=== PATIENT | male | born 1960 | race Caucasian/White ===

== ENCOUNTER 2023-04-22 14:11 | Emergency (ER) | payer OTHER, SELFPAY ==
--- NOTE | ~2023-04-22 | CT_ITS ---
EXAMINATION: CT ABDOMEN AND PELVIS WITH BOWEL CONTRAST ONLY. CLINICAL INFORMATION: Diffuse abdominal pain. COMPARISON: Noncontrast CT of the abdomen and pelvis done earlier today. TECHNIQUE: Multidetector volumetric imaging was performed from the superior aspect of the liver through the pubic symphysis. Sagittal and coronal reformatted images were obtained on the technologist's workstation. Positive contrast is identified within the large bowel and distal small bowel loops. This CT examination was performed using dose optimization techniques as appropriate, variously including the following: *Automated exposure control *Adjustment of mA and/or kV according to patient size (this includes techniques or standardized protocols for targeted exams where dose is matched to indication/reason for exam; i.e. extremities or head) *Use of iterative reconstruction technique DLP: 685 mGy-cm FINDINGS: LUNG BASES: Presumed pleural parenchymal scar at right lung base. LIVER, GALLBLADDER, AND BILIARY TREE: No focal liver lesion on this nonenhanced study. The gallbladder and biliary tree appear unremarkable. PANCREAS: Unremarkable. SPLEEN: Unremarkable. ADRENAL GLANDS: Unremarkable. KIDNEYS AND URETERS: The kidneys are normal in size, shape, and attenuation. No hydronephrosis, hydroureter, or calculi seen. No perinephric stranding. BLADDER: Unremarkable. GASTROINTESTINAL TRACT: Postsurgical changes are noted within the distal small bowel loops. Colonic diverticulosis involving the large bowel without any CT features of superimposed acute diverticulitis. The stomach is relatively decompressed. ABDOMINAL WALL: No significant hernia is appreciated. LYMPH NODES: Normal. VASCULAR: Unremarkable. PELVIC VISCERA: Unremarkable. OSSEOUS STRUCTURES: Moderate diffuse osteopenia and multilevel degenerative spondylosis. CT/CT abdomen pelvis wo IV con IMPRESSION: No significant abnormality. No significant change since the CT scan of the abdomen and pelvis done earlier today without bowel contrast. Fleischner guidelines were followed.
--- NOTE | ~2023-04-22 | CT_ITS ---
EXAMINATION: CT ABDOMEN AND PELVIS WITHOUT CONTRAST CLINICAL INFORMATION: 63-year-old male with abdominal pain COMPARISON: None available. TECHNIQUE: Multidetector volumetric imaging was performed from the superior aspect of the liver through the pubic symphysis. Sagittal and coronal reformatted images were obtained on the technologist's workstation. This CT examination was performed using dose optimization techniques as appropriate, variously including the following: *Automated exposure control *Adjustment of mA and/or kV according to patient size (this includes techniques or standardized protocols for targeted exams where dose is matched to indication/reason for exam; i.e. extremities or head) *Use of iterative reconstruction technique DLP: 698 mGy-cm FINDINGS: LUNG BASES: There is atelectasis in the right lung base. LIVER, GALLBLADDER, AND BILIARY TREE: Liver is of low attenuation, enlarged with nodular contour due to hepatic cirrhosis but without evidence of portal hypertension.. The gallbladder is unremarkable with no evidence of radiopaque gallstones, gallbladder wall thickening, or obvious pericholecystic inflammatory changes. PANCREAS: Unremarkable. SPLEEN: Unremarkable. ADRENAL GLANDS: Unremarkable. KIDNEYS AND URETERS: The kidneys are normal in size, shape, and attenuation. No hydronephrosis, hydroureter, or calculi seen. No perinephric stranding. BLADDER: Urinary bladder is only partially distended almost completely decompressed. GASTROINTESTINAL TRACT: Patient is status post bowel resection. Was functioning anastomosis. There is no evidence of bowel obstruction. Small bowel loops are not dilated. Anastomosis in the right side of the colon is mildly distended by fluid and gas. Anastomosis at the rectosigmoid area is unremarkable. There are changes of diverticulosis without diverticulitis. Appendix is not seen. ABDOMINAL WALL: There are postsurgical changes on the anterior abdominal wall without hernias seen. LYMPH NODES: Normal. VASCULAR: Unremarkable. PELVIC VISCERA: Unremarkable. OSSEOUS STRUCTURES: Unremarkable. CT/CT abdomen pelvis wo IV con IMPRESSION: 1. No evidence of bowel obstruction. Status post bowel resection. 2. Hepatic cirrhosis without portal hypertension. 3. Atelectasis in the right lung base. 4. Diverticulosis without diverticulitis. Fleischner guidelines were followed.
[2023-04-22 14:15] VITALS: BP 142/91; PULSE 80; RESP 16; TEMP 36.9; O2SAT 98; BMI 36.5
--- NOTE | 2023-04-22 14:22 | ED_ITS ---
HPI - General Adult General Chief complaint: Abdominal Pain Stated complaint: abd pain/ back pain Time Seen by Provider: 04/22/23 14:50 Source: patient, family (Son) and aerial photograph interpreter Mode of arrival: ambulatory History of Present Illness HPI narrative: 63-year-old male with diabetes, hypertension, abdominal surgical history presents with onset of waxing and waning abdominal discomfort this started in right upper quadrant since yesterday has been associated with nausea, vomiting, chills and subjective fevers. He denies any dysuria. Patient states he is been able to continue passing gas and having diarrhea. Related Data Allergies Allergy/AdvReac Type Severity Reaction Status Date / Time Iodinated Contrast Media Allergy Anaphylaxis Verified 04/22/23 14:21 [IV Contrast Dye] Penicillins Allergy Unknown Verified 04/22/23 14:18 Review of Systems Review of Systems: Pertinent positives and negatives as stated in HPI [facility] Past Medical History Source: nursing notes reviewed Medical History Diabetes Hx of renal calculi Hypertension Social History Social History Alcohol intake: never Smoked in Last 30 Days: Yes Use of substances other than those prescribed or required for medical reasons: No Advance Directives: No Advance Directives Information Provided: Yes Physical Exam ED Vital Signs: Vital Signs - 24 hr 04/22/23 14:15 04/22/23 15:02 04/22/23 18:26 Temperature 98.5 F 98.2 F 98 F Pulse Rate 80 73 71 Respiratory Rate 16 18 16 Blood Pressure 142/91 H 149/82 H 158/79 H Pulse Oximetry 98 97 98 Oxygen Delivery Method Room Air Room Air Room Air BMI result Body Mass Index 36.5 VITAL SIGNS: Reviewed. GENERAL: Elevated BMI, Well developed, well nourished, in no acute distress. HEAD: Normocephalic/atraumatic EYES: PERRLA, EOMI EARS: Ext canals without abnormality NOSE: Nares patent bilateral OROPHARYNX: no oral lesions noted, posterior pharynx clear NECK: Supple, no adenopathy LUNGS: Normal breath sounds. No adventitious sounds or accessory muscle use. SpO2<98> CARDIOVASCULAR: Regular rate and rhythm without noted murmurs, no JVD or lower extremity edema. ABDOMEN: Soft, diffusely tender on palpation, non-distended with hypoactive bowel sounds, extensive abdominal scars consistent with surgical history. MUSCULOSKELETAL: No tenderness, deformities, or effusions noted on gross inspection. EXTREMITIES: No cyanosis, clubbing or edema. SKIN: Inspection of the skin reveals no rashes NEUROLOGIC: Alert and oriented x 4. Strength and sensation to light touch were grossly intact x 4. Course Course Course Narrative: RME: 63 yold male with pmh of intestinal surgery in 2014 presents to the ED for abdominal pain especially Right upper and lower quadrant. Patient states also mutlipe bouts of diarrhea with no blood. patient has anaphylactic reaction to IV contrast. labs and dry abdominal CT scan ordered Medications Administered Discontinued Medications Generic Name Dose Route Start Last Admin Trade Name Freq PRN Reason Stop Dose Admin Diatrizoate Meglum/Diatrizoate Sod 30 ml 04/22/23 18:41 04/22/23 18:41 Diatrizoate Meglumine, Sodium 30 Ml Solution PO 04/22/23 18:42 30 ml ONCE ONE Administration Fentanyl 25 mcg 04/22/23 15:33 04/22/23 15:49 Fentanyl Citrate/Pf 100 Mcg/2 Ml Vial IVPUSH 04/22/23 15:34 25 mcg ONCE ONE Administration Protocol Sodium Chloride 1,000 mls @ 999 mls/hr 04/22/23 15:45 04/22/23 19:30 Ns IV 04/22/23 16:45 Infused .Q1H1M DARRIAN Infusion Cefepime HCl 1 gm/ Sodium 50 mls @ 100 mls/hr 04/22/23 15:33 04/22/23 16:40 Chloride IV 04/22/23 16:02 Infused ONCE ONE Infusion Ketorolac Tromethamine 15 mg 04/22/23 18:37 04/22/23 18:42 Ketorolac Tromethamine 30 Mg/Ml Vial IVPUSH 04/22/23 18:38 15 mg ONCE ONE Administration Medical Decision Making Medical Decision Making [facility] Narrative: 1535: 63-year-old male with history and clinical presentation, DDX: Perforation, SBO, diverticulitis, appendicitis, incarcerated hernia. I quickly reviewed lab work and a with patient is afebrile there is a leukocytosis and lactic acid/blood cultures, IV fluids, as well as antibiotics have been ordered. I reviewed all investigations and hematologic indices are significant for leukocytosis without a left shift, no anemia or thrombocytopenia. Chemistry indices are without electrolyte or liver enzyme abnormalities, there is no JAY, lactic acid is within normal limits. Urinalysis is negative for UTI or hematuria and viral testing is negative. Patient had no diarrhea while here in the emergency room so further investigations on possible GI infection are not possible at this time. Initial CT scan was negative for any evidence to suggest a diverticulitis or renal colic. I then discussed the case with General surgery consultation who recommended oral contrast since patient is allergic to IV contrast dye, on evaluation of that CT scan there are again no acute findings and contrast is noted to be within the rectum. Otherwise my interpretation is in agreement with radiology's impression. I communicated these findings with the general assistant professor of surgery. The the leukocytosis is likely stress in nature. 2020: On re-evaluation patient reports that his pain is much better and he is tolerating oral intake. Patient was given all results, findings and plan and understands that he will need to follow-up with his primary care doctor in the morning. Differential Diagnosis Differential Diagnoses: The differential diagnosis associated with the presentation includes Please see the discussion above Admission/Observation Consideration of admission/observation: Escalation of care including adm ission/observation considered Please see the discussion above Lab Data MDM Lab Attestation statement: I reviewed the patient's lab results. Please see the discussion above 04/22/23 14:31 04/22/23 14:31 Labs: Lab Results 04/22/23 04/22/23 04/22/23 Range/Units 14:31 14:31 14:31 WBC 17.4 H (4.8-10.8) X10*3/uL RBC 5.05 (4.60-5.80) X10*6/uL Hgb 15.4 (14.0-18.0) g/dl Hct 45.3 (42.0-52.0) % MCV 89.7 (80.0-98.0) fL MCH 30.5 (27.0-33.0) pg MCHC 34.0 (31.0-36.0) g/dl RDW 14.5 (11.0-16.0) % Plt Count 325 (160-400) X10*3/uL MPV 10.9 (9.4-12.4) fL Immature Gran % (Auto) Cancelled Neut % (Auto) Cancelled Lymph % (Auto) Cancelled [place] % (Auto) Cancelled Eos % (Auto) Cancelled Baso % (Auto) Cancelled Lymph # (Auto) Cancelled [place] # (Auto) Cancelled Eos # (Auto) Cancelled Baso # (Auto) Cancelled Abs Immat Gran (auto) Cancelled Absolute Neuts (auto) Cancelled Absolute Nucleated RBC 0.000 (0.0-0.012) X10*3/uL Nucleated RBC % (auto) 0.0 (0.0-0.2) /100WBC Neutrophils % (Manual) 63 (45-73) % Band Neutrophils % 0 L (3-5) % Lymphocytes % (Manual) 27 (20-40) % Atypical Lymphs % (Man) 1 (0-6) % Monocytes % (Manual) 5 (2-11) % Eosinophils % (Manual) 3 (0-4) % Basophils % (Manual) 1 (0-2) % Abs Neuts (Manual) 11.0 H (2.0-8.3) X10*3/uL Lymphocytes # (Manual) 4.7 (1.2-4.9) X10*3/uL Atyp Lymphs # (Manual) 0.2 x10*3/uL Monocytes # (Manual) 0.9 (0.1-1.2) X10*3/uL Eosinophils # (Manual) 0.5 H (0.0-0.4) X10*3/uL Basophils # (Manual) 0.2 (0.0-0.2) X10*3/uL Smudge Cells PRESENT Toxic Vacuolation PRESENT Platelet Estimate NORMAL (NORMAL) Giant Platelets PRESENT Plt Morphology Comment NOTED RBC Morphology NOTED Dennis Cells 2+ (3-5) /OIF Sodium 138 (135-145) mmol/L Potassium 3.8 (3.3-5.1) mmol/L Chloride 107 (96-108) mmol/L Carbon Dioxide 24 (22-29) mmol/L Anion Gap 11 L (12-20) BUN 9 (9-16) mg/dL Creatinine 1.12 (0.5-1.4) mg/dL Estim Creat Clear Calc 82.8 Estimated GFR > 60 Random Glucose 146 H (60-115) mg/dL Lactic Acid (0.5-2.0) mmol/L Calcium 9.6 (8.4-10.2) mg/dL Total Bilirubin 0.4 (0.0-1.0) mg/dL AST 16 (5-37) U/L ALT 17 (0-40) U/L Alkaline Phosphatase 80 (39-117) U/L Total Protein 7.6 (6.5-8.0) g/dL Albumin 4.0 (3.5-5.0) g/dL Urine Color Urine Appearance Urine pH (5.0-9.0) Ur Specific [place] (1.005-1.025) Urine Protein (Neg-Trace) mg/dL Urine Glucose (UA) (Negative) mg/dL Urine Ketones (Negative) mg/dL Urine Blood (Negative) Urine Nitrite (Negative) Ur Leukocyte Esterase (Negative) COVID-19 (CANDACE) (Negative) COVID-19 Clin Com Influenza Type A (MANNY) Negative (Negative) Influenza Type B (MANNY) Negative (Negative) Influenza A & B Note See Note 04/22/23 04/22/23 04/22/23 Range/Units 14:31 14:41 15:46 WBC (4.8-10.8) X10*3/uL RBC (4.60-5.80) X10*6/uL Hgb (14.0-18.0) g/dl Hct (42.0-52.0) % MCV (80.0-98.0) fL MCH (27.0-33.0) pg MCHC (31.0-36.0) g/dl RDW (11.0-16.0) % Plt Count (160-400) X10*3/uL MPV (9.4-12.4) fL Immature Gran % (Auto) Neut % (Auto) Lymph % (Auto) [place] % (Auto) Eos % (Auto) Baso % (Auto) Lymph # (Auto) [place] # (Auto) Eos # (Auto) Baso # (Auto) Abs Immat Gran (auto) Absolute Neuts (auto) Absolute Nucleated RBC (0.0-0.012) X10*3/uL Nucleated RBC % (auto) (0.0-0.2) /100WBC Neutrophils % (Manual) (45-73) % Band Neutrophils % (3-5) % Lymphocytes % (Manual) (20-40) % Atypical Lymphs % (Man) (0-6) % Monocytes % (Manual) (2-11) % Eosinophils % (Manual) (0-4) % Basophils % (Manual) (0-2) % Abs Neuts (Manual) (2.0-8.3) X10*3/uL Lymphocytes # (Manual) (1.2-4.9) X10*3/uL Atyp Lymphs # (Manual) x10*3/uL Monocytes # (Manual) (0.1-1.2) X10*3/uL Eosinophils # (Manual) (0.0-0.4) X10*3/uL Basophils # (Manual) (0.0-0.2) X10*3/uL Smudge Cells Toxic Vacuolation Platelet Estimate (NORMAL) Giant Platelets Plt Morphology Comment RBC Morphology Dennis Cells /OIF Sodium (135-145) mmol/L Potassium (3.3-5.1) mmol/L Chloride (96-108) mmol/L Carbon Dioxide (22-29) mmol/L Anion Gap (12-20) BUN (9-16) mg/dL Creatinine (0.5-1.4) mg/dL Estim Creat Clear Calc Estimated GFR Random Glucose (60-115) mg/dL Lactic Acid 1.3 (0.5-2.0) mmol/L Calcium (8.4-10.2) mg/dL Total Bilirubin (0.0-1.0) mg/dL AST (5-37) U/L ALT (0-40) U/L Alkaline Phosphatase (39-117) U/L Total Protein (6.5-8.0) g/dL Albumin (3.5-5.0) g/dL Urine Color Yellow Urine Appearance Clear Urine pH 5.5 (5.0-9.0) Ur Specific [place] >= 1.030 H (1.005-1.025) Urine Protein Negative (Neg-Trace) mg/dL Urine Glucose (UA) Negative (Negative) mg/dL Urine Ketones Trace (Negative) mg/dL Urine Blood Negative (Negative) Urine Nitrite Negative (Negative) Ur Leukocyte Esterase Negative (Negative) COVID-19 (CANDACE) Negative (Negative) COVID-19 Clin Com See Note Influenza Type A (MANNY) (Negative) Influenza Type B (MANNY) (Negative) Influenza A & B Note Radiology Impression Discussion of test interpretation with radiology: I have reviewed the radiologist's reading. Radiologist Impression: Please see the discussion above Chronic Conditions Patient?s care impacted by: Diabetes Critical Care Time Critical Care Time Critical Care Time: Yes Total Critical Care Time: 30 Attestation: I personally attest to this time spent taking care of the patient. Discharge Plan Discharge Clinical Impression: Abdominal discomfort, Gastroenteritis, Dehydration Patient Disposition: Home, Self-Care Instructions: Dehydration (ED), Gastroenteritis (ED), Nutrition Tips for Relief of Diarrhea (ED) Additional Instructions: 1. Reanudar todos los medicamentos caseros seg?n lo recetado. 2. Aumente la cantidad de agua que gagan y shania un seguimiento con crisostomo proveedor de atenci?n primaria llamando al consultorio por la ma?debby. Regrese a la josefa de emergencias si los s?ntomas empeoran. 1. Resume all home medications as prescribed. 2. Increase amount of water that you drink and follow-up with your primary care provider by calling the office in the morning. Return to the ER for any worsening symptoms. Print Language: Azeri
[2023-04-22 14:45] LABS: Hematocrit 45.3 % (42.0-52.0); Hemoglobin 15.4 g/dl (14.0-18.0); Mean Corpuscular Hemoglobin 30.5 pg (27.0-33.0); Mean Corpuscular Volume 89.7 fL (80.0-98.0); Mean Platelet Volume 10.9 fL (9.4-12.4); Platelet Count 325 X10*3/uL (160-400); Red Blood Count 5.05 X10*6/uL (4.60-5.80); Red Cell Distribution Width 14.5 % (11.0-16.0)
[2023-04-22 14:49] LABS: Appearance Urine Clear; Color Urine Yellow; Glucose Urine UA Negative (Negative); Leukocyte Esterase Urine Negative (Negative); Nitrite Urine Negative (Negative); PH 5.5 (5.0-9.0); Specific Gravity - Urine >= 1.030 (1.005-1.025); Urine Blood Negative (Negative); Urine Ketones Trace mg/dL (Negative); Urine Protein Negative (Neg-Trace)
[2023-04-22 14:54] LABS: Alanine Aminotransferase 17 U/L (0-40); Alkaline Phosphatase 80 U/L (39-117); Anion Gap 11 (12-20); Aspartate Amino Transferase 16 U/L (5-37); Bilirubin Total 0.4 mg/dL (0.0-1.0); Blood Urea Nitrogen 9 mg/dL (9-16); Calcium 9.6 mg/dL (8.4-10.2); Carbon Dioxide 24 mmol/L (22-29); Chloride 107 mmol/L (96-108); Creatinine Clr Calc Pharmacy 82.8; Estimated Glomerular Filt Rate > 60; Glucose Random 146 mg/dL (60-115); Potassium 3.8 mmol/L (3.3-5.1); Sodium 138 mmol/L (135-145); Total Protein 7.6 g/dL (6.5-8.0)
[2023-04-22 14:55] LABS: COVID-19 Test Negative (Negative); IDNOW Serial# BCCEAD1C
[2023-04-22 14:58] LABS: WBC ABN SCTR FOR CBC 1; White Blood Count 17.4 X10*3/uL (4.8-10.8)
[2023-04-22 15:02] VITALS: BP 149/82; PULSE 73; RESP 18; TEMP 36.8; O2SAT 97
--- NOTE | 2023-04-22 15:07 | PC.NURSE ---
pt a&ox3, vss, pt verbalizing 8/10 abdominal pain in the RLQ that radiates to flanks bilaterally. pain started yesterday. pt states he has fever/n/v/chills/dysuria. pt verbalizes that he has hx of kidney stones. pt currently being transferred to CT. will reassess pt when he returns.
[2023-04-22 15:09] LABS: Atypical Lymph Absolute Manual 0.2 x10*3/uL; Atypical Lymphs Percent Manual 1 % (0-6); Band Neutrophils Percent 0 % (3-5); Basophils Abs Manual 0.2 X10*3/uL (0.0-0.2); Basophils Percent Manual 1 % (0-2); Eosinophils Absolute Manual 0.5 X10*3/uL (0.0-0.4); Eosinophils Percent Manual 3 % (0-4); IDNOW Serial# 08D9AD1C; Influenza A Negative (Negative); Influenza B2 Negative (Negative); Lymphocytes Absolute Manual 4.7 X10*3/uL (1.2-4.9); Lymphocytes Percent Manual 27 % (20-40); Monocytes Absolute Manual 0.9 X10*3/uL (0.1-1.2); Monocytes Percent Manual 5 % (2-11); Neutrophils Percent Manual 63 % (45-73)
[2023-04-22 15:13] LABS: Burr Cells 2+ (3-5) /OIF; Giant Platelet PRESENT; Platelet Estimate NORMAL (NORMAL); Platelet Morphology Comment NOTED; RBC Morphology NOTED
[2023-04-22 15:14] LABS: Smudge Cells PRESENT; Toxic Vacuolation PRESENT
[2023-04-22] MEDS: 0.9 % Sodium Chloride 1,000 ML 999 ML IV (15:47)
[2023-04-22] MEDS: fentaNYL citrate/PF 100 MCG/2 ML VIAL 25 MCG IVPUSH (15:49)
[2023-04-22] MEDS: cefEPime HCl 1 GM in 0.9 % Sodium Chloride 50 ML IV (15:50)
--- NOTE | 2023-04-22 15:59 | PC.NURSE ---
20gIV placed in the right AC medications and IVF hung and administered per provider order. call ballesteros placed within reach.
[2023-04-22 16:09] LABS: Lactic Acid 1.3 mmol/L (0.5-2.0)
--- NOTE | 2023-04-22 16:29 | PC.NURSE ---
IVF and medications currently still hung and running per provider order. pt stating that pain level remains the same post medication administration. will notify provider.
[2023-04-22 18:26] VITALS: BP 158/79; PULSE 71; RESP 16; TEMP 36.6; O2SAT 98
[2023-04-22] MEDS: Diatrizoate Meglumine, Sodium 30 ML SOLUTION PO (18:41)
[2023-04-22] MEDS: Ketorolac Tromethamine 30 MG/ML VIAL 15 MG IVPUSH (18:42)
--- NOTE | 2023-04-22 18:44 | PC.NURSE ---
pt medicated per order
[2023-04-22 20:28] VITALS: BP 169/91; PULSE 82; RESP 17; O2SAT 95
== END 2023-04-22 20:31 | disposition home or self-care (01) ==
PROVIDERS: Physician Assistant; Emergency Provider Student in an Organized Health Care Education/Training Program
DX: R10.9 Unspecified abdominal pain (principal); K52.9 Noninfective gastroenteritis and colitis, unspecified; E86.0 Dehydration; E11.9 Type 2 diabetes mellitus without complications; I10 Essential (primary) hypertension; E66.9 Obesity, unspecified; Z68.36 Body mass index [BMI] 36.0-36.9, adult
CPT/HCPCS: 36415; 74176; 80053; 81003; 83605; 85007; 85027; 87040; 87502; 87635; 96361; 96365; 96375; 99284; 99285; J0692; J1885; J3010

== ENCOUNTER 2023-07-30 15:50 | Emergency (ER) | payer OTHER, SELFPAY ==
--- NOTE | ~2023-07-30 | XR_ITS ---
EXAMINATION: XR FOOT, LEFT CLINICAL INFORMATION: Left foot pain COMPARISON: None available. TECHNIQUE: AP, lateral, and oblique views of the left foot. FINDINGS: The bones are normal. No fracture. Alignment is anatomic. Joint spaces are maintained. There is a small retrocalcaneal enthesophyte. There is a mild dorsal distal foot soft tissue swelling. XR/XR foot LT min 3V IMPRESSION: Small retrocalcaneal enthesophyte. No visible acute fracture or dislocation seen. There is mild dorsal distal foot soft tissue swelling
[2023-07-30 16:52] VITALS: BP 138/86; PULSE 90; RESP 18; TEMP 36.3; O2SAT 98; BMI 34.2
--- NOTE | 2023-07-30 16:57 | ED.GENADULT ---
HPI - General Adult General Chief complaint: Extremity Injury, Lower Stated complaint: L foot injury Time Seen by Provider: 07/30/23 17:36 Source: patient and adult education teacher Mode of arrival: ambulatory Limitations: language barrier History of Present Illness HPI narrative: Patient is a 63 year old assigned male at with a history of kidney stones, diabetes, and HTN presenting to the emergency department today with left foot pain. Patient states that over the last 2 days he has had left foot pain, swelling, and redness. Patient denies any dizziness, lightheadedness, abdominal pain, nausea, vomiting, fever, chills, blurry vision, double vision, loss of vision, chest pain, difficulty breathing, shortness of breath, back pain, night sweats, pain with urination, increased urinary frequency, increased urinary urgency, blood in his urine or stool, syncope or a near syncopal episode, recent trauma or falls, bowel incontinence, bladder incontinence, bowel retention, bladder retention, or any other complaints at this time. Onset (ago): day(s) (2) Location: left (foot) Radiation: non-radiation Severity: mild Severity scale (1-10): 3 Quality: aching and dull Pain Consistency: constant Relieving factors: none Exacerbating factors: none Associated symptoms: denies other symptoms Treatments prior to arrival: none Related Data Previous Rx's Medication Instructions Recorded naproxen 500 mg tablet 500 mg PO BID 7 days #14 tabs 07/30/23 prednisone 20 mg tablet 20 mg PO DAILY 7 days #7 tabs 07/30/23 Allergies Allergy/AdvReac Type Severity Reaction Status Date / Time Iodinated Contrast Media Allergy Anaphylaxis Verified 07/30/23 16:48 [IV Contrast Dye] Penicillins Allergy Unknown Verified 07/30/23 16:48 Review of Systems Constitutional: Constitutional: Reports no additional constitutional complaints, Denies chills, Denies fever(s) and Denies night sweats Eyes: Eyes: Reports no additional eye complaints, Denies blurry vision, Denies change in vision, Denies diplopia, Denies eye discharge, Denies loss of vision and Denies eye pain ENT: Denies dizziness Cardiovascular: Cardiovascular: Reports no additional cardiovascular complaints, Denies chest pain, Denies lightheadedness, Denies Loss of Consciousness and Denies dyspnea Respiratory: Respiratory: Reports no additional respiratory complaints and Denies dyspnea Gastrointestinal: Gastrointestinal: Reports no additional gastrointestinal complaints, Denies abdominal pain, Denies melena, Denies hematochezia, Denies change in bowel habits and Denies change in stool character Genitourinary: Genitourinary: Reports no additional male genitourinary complaints, Denies hematuria, Denies oliguria, Denies difficulty urinating, Denies dysuria, Denies urinary frequency, Denies urinary hesitancy, Denies urinary incontinence and Denies urinary urgency Musculoskeletal: Musculoskeletal: Reports no additional musculoskeletal complaints, Denies numbness and Denies tingling Comments: left foot pain, redness, and swelling Neurologic: Denies dizziness, Denies loss of vision, Denies numbness and Denies tingling Psychiatric: Psychiatric: Reports no additional psychiatric complaints Endocrine: Endocrine: Reports no additional endocrine complaints Hematologic/Lymphatic: Hematologic/Lymphatic: Reports no additional hematologic/lymphatic complaints Allergic/Immunologic: Allergic/Immunologic: Reports no additional allergic/immunologic complaints PMFSH Past Medical History Attestation statement: The following information was validated with the patient. Source: old records reviewed and nursing notes reviewed Medical History Hx of renal calculi Diabetes Hypertension Social History Social History Alcohol intake: never Advance Directives: No Advance Directives Information Provided: No Physical Exam ED Vital Signs: Vital Signs - 24 hr 07/30/23 16:52 Temperature 97.3 F Pulse Rate 90 Respiratory Rate 18 Blood Pressure 138/86 Pulse Oximetry 98 Oxygen Delivery Method Room Air BMI result Body Mass Index 34.2 Const General: cooperative, no acute distress, alert and awake Nutritional Appearance: well nourished Orientation/consciousness: patient oriented x3 Limitations: no limitations [facility] Head: Yes normal to inspection and Yes atraumatic Ears: hearing grossly normal bilaterally and external ears normal General nose exam: Normal external nose present, no nasal discharge noted and no epistaxis Face and sinus: Yes normal facial exam, No abrasion and No laceration Mouth: Normal oral and palatal mucosa present, no drooling and no muffled voice Eyes General: appearance normal, both eyes and all related structures Periorbital: periorbital findings normal Eyelids: Yes eyelids normal Conjunctivae: conjunctivae normal Pupils: Equal, round and reactive pupils present EOM: EOMs intact bilaterally Neck Neck: Yes normal visual inspection, Yes full ROM and Yes no lymphadenopathy Chest Chest palpation & inspection: normal inspection of the chest Resp Effort & Inspection: normal respiratory effort and able to speak in complete sentences GI Inspection: Yes normal to inspection Neuro General: patient oriented x3 and moves all extremities Cranial nerves: Yes Equal, round and reactive pupils present Cognition (Neuro): normal cognition Motor exam (neuro): 5/5 motor strength present throughout Sensory Exam: Normal double simultaneous stimulation for sensation Coordination: [id number] test normal Extrem Other: minimal swelling and redness present to the dorsal left foot, specifically over the left 1st MTP joint as well as pain with light palpation of the left 1st MTP joint General: Yes full ROM and Yes capillary refill normal Psych Appearance: grossly normal Mental Status: mental status grossly normal Affect: normal affect Attitude: cooperative Thought process: Normal thought process present Thought content: Normal thought content present Insight: Good insight present (Psych) Course Course Course Narrative: Atraumatic left great toe/foot pain for the last 2 days. Patient denies any known history gout but his exam is consistent with gout. Given that he was never diagnosed plan for labs, x-ray per Medications Administered Discontinued Medications Generic Name Dose Route Start Last Admin Trade Name Jeffryq PRN Reason Stop Dose Admin Ketorolac Tromethamine 15 mg 07/30/23 18:09 07/30/23 18:22 Ketorolac Tromethamine 15 Mg/Ml Vial IM 07/30/23 18:10 15 mg ONCE ONE Administration Prednisone 20 mg 07/30/23 18:09 07/30/23 18:22 Prednisone 20 Mg Tablet PO 07/30/23 18:10 20 mg ONCE ONE Administration Medical Decision Making Medical Decision Making [facility] Narrative: Patient is a 63 year old assigned male at with a history of DM, HTN, and kidney stones presenting to the emergency department today with left foot pain. Patient's physical exam was as noted in the physical exam portion of this note. Patient's blood work showed a mildly elevated WBC count of 12.1 but was otherwise unremarkable. Patient's left foot x-ray showed no acute process. I explained my physical exam findings as well as all test results to the patient. I answered all questions asked by the patient. Patient's clinical presentation is most consistent with gout. I stressed the importance of the patient taking his medication as prescribed. I stressed the importance of the patient following up with his primary care provider. I stressed the importance of the patient returning to the emergency department immediately if his symptoms were to worsen or if he were to develop any dizziness, shortness of breath, difficulty breathing, chest pain, blurry vision, loss of vision, nausea, vomiting, abdominal pain, fever, chills, back pain, or any other complaints. Patient verbalized agreement and understanding with this treatment plan and discharge. Differential Diagnosis Differential Diagnoses: The differential diagnosis associated with the presentation includes Gout Left foot pain Left foot sprain Left foot fracture Admission/Observation Consideration of admission/observation: Escalation of care including admission/observation considered Patient would have been admitted to the hospital had his work up had any findings where hospital admission was appropriate and his clinical presentation warranted hospital admission. Lab Data [facility] Lab Attestation statement: I reviewed the patient's lab results. My interpretation of these results are in the [facility] Rationale portion of this note. 07/30/23 17:15 07/30/23 17:15 Labs: Lab Results 07/30/23 07/30/23 Range/Units 17:15 Unknown WBC 12.1 H (4.8-10.8) X10*3/uL RBC 5.14 (4.60-5.80) X10*6/uL Hgb 14.7 (14.0-18.0) g/dl Hct 45.1 (42.0-52.0) % MCV 87.7 (80.0-98.0) fL MCH 28.6 (27.0-33.0) pg MCHC 32.6 (31.0-36.0) g/dl RDW 14.6 (11.0-16.0) % Plt Count 326 (160-400) X10*3/uL MPV 11.1 (9.4-12.4) fL Immature Gran % (Auto) 0.3 (0.0-0.4) % Neut % (Auto) 54.8 (45-73) % Lymph % (Auto) 29.6 (20-40) % Cole % (Auto) 10.4 (2-11) % Eos % (Auto) 4.0 (0-4) % Baso % (Auto) 0.9 (0-2) % Lymph # (Auto) 3.6 (1.2-4.9) X10*3/uL Cole # (Auto) 1.3 H (0.1-1.2) X10*3/uL Eos # (Auto) 0.5 H (0.0-0.4) X10*3/uL Baso # (Auto) 0.1 (0.0-0.2) X10*3/uL Abs Immat Gran (auto) 0.04 H (0.00-0.03) X10*3/uL Absolute Neuts (auto) 6.7 (2.0-8.3) x10*3/uL Absolute Nucleated RBC 0.000 (0.0-0.012) X10*3/uL Nucleated RBC % (auto) 0.0 (0.0-0.2) /100WBC ESR 10 (0-15) MM/HR Hold Purple Top SEE NOTE Sodium 141 (135-145) mmol/L Potassium 4.5 (3.3-5.1) mmol/L Chloride 107 (96-108) mmol/L Carbon Dioxide 27 (22-29) mmol/L Anion Gap 12 (12-20) BUN 7 L (9-16) mg/dL Creatinine 1.09 (0.5-1.4) mg/dL Estim Creat Clear Calc 82.4 Estimated GFR > 60 Random Glucose 94 (60-115) mg/dL Calcium 9.5 (8.4-10.2) mg/dL C-Reactive Protein 1.87 H (< or = 0.50) mg/dL Independent Interpretation I performed an independent interpretation of an: Plain X-Ray Interpretation: My interpretation is in agreement with the radiologist's impression of this imaging study. EXAMINATION: XR FOOT, LEFT CLINICAL INFORMATION: Left foot pain COMPARISON: None available. TECHNIQUE: AP, lateral, and oblique views of the left foot. FINDINGS: The bones are normal. No fracture. Alignment is anatomic. Joint spaces are maintained. There is a small retrocalcaneal enthesophyte. There is a mild dorsal distal foot soft tissue swelling. XR/XR foot LT min 3V IMPRESSION: Small retrocalcaneal enthesophyte. No visible acute fracture or dislocation seen. There is mild dorsal distal foot soft tissue swelling Dictated By: Deo Zaidi MD Signed By: Electronically signed by Deo Zaidi MD 07/30/23 3150 Radiology Impression Discussion of test interpretation with radiology: I have reviewed the radiologist's reading. Prescription Management I considered prescription management with: Pain Medication (patient prescribed pain medication) Chronic Conditions Patient?s care impacted by: Diabetes and Hypertension Discharge Plan Discharge Clinical Impression: Gout Patient Disposition: Home, Self-Care Instructions: Low Purine Diet (ED), Gout (ED) Additional Instructions: Follow up with your primary care provider. Return to the emergency department immediately if your symptoms worsen or if you develop any dizziness, shortness of breath, difficulty breathing, chest pain, blurry vision, loss of vision, nausea, vomiting, abdominal pain, fever, chills, back pain, or any other complaints. Shania un seguimiento con crisostomo proveedor de atenci?n primaria. Regrese al departamento de emergencias inmediatamente si dillon s?ntomas empeoran o si presenta mareos, dificultad para respirar, dificultad para respirar, dolor en el pecho, visi?n borrosa, p?rdida de la visi?n, n?useas, v?mitos, dolor abdominal, fiebre, escalofr?os, dolor de espalda o cualquier otras quejas. Prescriptions: New prednisone 20 mg tablet 20 mg PO DAILY 7 Days Qty: 7 0RF naproxen 500 mg tablet 500 mg PO BID 7 Days Qty: 14 0RF Referrals: [facility] [place]] (Call to establish and follow up with a primary care provider. If you already have a primary care provider, please follow up with them. Llame para establecer y realizar un seguimiento con un proveedor de atenci?n primaria. Si ya tiene un proveedor de atenci?n primaria, shania un seguimiento con ?l.) [facility]] (Call to establish and follow up with a primary care provider. If you already have a primary care provider, please follow up with them. Llame para establecer y realizar un seguimiento con un proveedor de atenci?n primaria. Si ya tiene un proveedor de atenci?n primaria, shania un seguimiento con ?l.) [facility]] (Call to establish and follow up with a primary care provider. If you already have a primary care provider, please follow up with them. Llame para establecer y realizar un seguimiento con un proveedor de atenci?n primaria. Si ya tiene un proveedor de atenci?n primaria, shania un seguimiento con ?l.) Interventions: ED Discharge Assessment Last Done: 07/30/23 18:41 Discharge Date/Time: 07/30/23 18:42 Print Language: Libyan
[2023-07-30 17:21] LABS: MANUAL DIFF FLAG NO
[2023-07-30 17:29] LABS: Basophils Absolute Auto 0.1 X10*3/uL (0.0-0.2); Basophils Percent Auto 0.9 % (0-2); Eosinophils Absolute Auto 0.5 X10*3/uL (0.0-0.4); Hematocrit 45.1 % (42.0-52.0); Hemoglobin 14.7 g/dl (14.0-18.0); Imm Gran Abs Auto 0.04 X10*3/uL (0.00-0.03); Imm Gran Pct Auto 0.3 % (0.0-0.4); Lymphocytes Absolute Auto 3.6 X10*3/uL (1.2-4.9); Lymphocytes Percent Auto 29.6 % (20-40); Mean Corpuscular HGB Conc 32.6 g/dl (31.0-36.0); Mean Corpuscular Hemoglobin 28.6 pg (27.0-33.0); Mean Corpuscular Volume 87.7 fL (80.0-98.0); Mean Platelet Volume 11.1 fL (9.4-12.4); Monocytes Absolute Auto 1.3 X10*3/uL (0.1-1.2); Monocytes Percent Auto 10.4 % (2-11); Neutrophils Absolute Auto 6.7 x10*3/uL (2.0-8.3); Neutrophils Percent Auto 54.8 % (45-73); Platelet Count 326 X10*3/uL (160-400); Red Blood Count 5.14 X10*6/uL (4.60-5.80); Red Cell Distribution Width 14.6 % (11.0-16.0); White Blood Count 12.1 X10*3/uL (4.8-10.8)
[2023-07-30 17:45] LABS: Anion Gap 12 (12-20); Blood Urea Nitrogen 7 mg/dL (9-16); C Reactive Protein 1.87 mg/dL (< or = 0.50); Calcium 9.5 mg/dL (8.4-10.2); Carbon Dioxide 27 mmol/L (22-29); Chloride 107 mmol/L (96-108); Creatinine Clr Calc Pharmacy 82.4; Estimated Glomerular Filt Rate > 60; Glucose Random 94 mg/dL (60-115); Potassium 4.5 mmol/L (3.3-5.1); Sodium 141 mmol/L (135-145)
[2023-07-30 18:15] LABS: Erythrocyte Sedimentation Rate 10 MM/HR (0-15)
[2023-07-30] MEDS: predniSONE 20 MG TABLET PO (18:22)
[2023-07-30] MEDS: Ketorolac Tromethamine 15 MG/ML VIAL IM (18:22)
== END 2023-07-30 18:42 | disposition home or self-care (01) ==
PROVIDERS: Physician Assistant; Emergency Provider Emergency Medicine
DX: M10.072 Idiopathic gout, left ankle and foot (principal); M79.672 Pain in left foot; Z79.899 Other long term (current) drug therapy
CPT/HCPCS: 36415; 73630; 80048; 85025; 85652; 86140; 96372; 99283; 99284; J1885